=== PATIENT | male | born 1980 | race American Indian/Alaskan Native ===

== ENCOUNTER 2018-08-20 12:40 | Emergency (ER) | payer OTHER ==
[2018-08-20 13:19] VITALS: BP 123/80; PULSE 101; RESP 20; TEMP 98; O2SAT 97
[2018-08-20] MEDS ORDERED: Lidocaine 5% Patch TD STA (14:00)
--- NOTE | 2018-08-20 14:09 | ED PDOC ---
HPI: Back Additional Complaint(s): 38 yo Male with PMH of asthma and chronic low back pain present today sent by PMD due to worsening back pain in the past weeks. Patient stated he injured his back about 9 years ago while lifting and since then the pain have been intermittent with worsen lately. He had tried pain meds and muscle relaxants w/o relief. Patient radiates to his leg bilaterally with occasional numbness and tingling. He denies fevers, chills, nausea, vomiting, CP or abd pain, no urinary sx, incontinence or changes in BM PMD: Dr Dorsey <Earnestine Davis - Last Filed: 08/20/18 14:01> <Allen Reyes - Last Filed: 08/20/18 15:41> Chief Complaint (Nursing): Back Pain Past Medical History Vital Signs: Last Vital Signs Temp 98 F 08/20/18 13:17 Pulse 101 H 08/20/18 13:17 Resp 20 08/20/18 13:17 BP 123/80 08/20/18 13:17 Pulse Ox 97 08/20/18 13:17 - Medical History PMH: Asthma <Earnestine Davis - Last Filed: 08/20/18 14:01> Vital Signs: Last Vital Signs Temp 98 F 08/20/18 13:17 Pulse 101 H 08/20/18 13:17 Resp 20 08/20/18 13:17 BP 123/80 08/20/18 13:17 Pulse Ox 97 08/20/18 14:14 - Surgical History Surgical History: No Surg Hx - Family History Family History: States: Unknown Family Hx <Allen Reyes - Last Filed: 08/20/18 15:41> - Allergies Allergies/Adverse Reactions: Allergies Allergy/AdvReac Type Severity Reaction Status Date / Time iodine Allergy RASH Verified 08/20/18 13:17 Supervising Attending Note - Supervising Attending Note The Documented history was done by the: Physician Angle Bender The documented physical exam was done by the: Physician Angle Bender The documented procedures were done by the: Physician Angle Bender - Attestation: I have personally seen and examined this patient.: Yes I have fully participated in the care of the patient.: Yes I have reviewed all pertinent clinical information: Yes - Notes: Notes:: back pain <Allen Reyes - Last Filed: 08/20/18 15:41> Review of Systems Constitutional: Negative for: Fever, Chills, Weakness Cardiovascular: Negative for: Chest Pain, Palpitations Respiratory: Negative for: Cough, Shortness of Breath Gastrointestinal: Negative for: Nausea, Vomiting, Abdominal Pain Genitourinary Male: Negative for: Dysuria, Incontinence Musculoskeletal: Positive for: Back Pain. Negative for: Neck Pain, Shoulder Pain, Leg Pain Neurological: Positive for: Numbness. Negative for: Weakness <Earnestine Davis - Last Filed: 08/20/18 14:01> Physical Exam - Reviewed Nursing Documentation Reviewed: Yes Vital Signs Reviewed: Yes - Physical Exam Appears: Positive for: In Acute Distress (due to pain) Head Exam: Positive for: NORMAL INSPECTION Neck: Positive for: Normal, Painless ROM, Supple Cardiovascular/Chest: Positive for: Regular Rate, Rhythm. Negative for: Murmur, Tachycardia Respiratory: Positive for: Normal Breath Sounds. Negative for: Rales, Wheezing Gastrointestinal/Abdominal: Positive for: Bowel Sounds, Soft. Negative for: Tenderness, Distended Back: Positive for: Vertebral Tenderness (Lumbar spine), Other (Straight leg rise positive b/l). Negative for: L CVA Tenderness, R CVA Tenderness Neurological/Psych: Positive for: Awake, Alert, Normal Tone, Oriented <Earnestine Davis - Last Filed: 08/20/18 14:01> - Physical Exam Cardiovascular/Chest: Positive for: Regular Rate, Rhythm Respiratory: Positive for: Normal Breath Sounds <Allen Reyes - Last Filed: 08/20/18 15:41> - ECG O2 Sat by Pulse Oximetry: 97 <Earnestine Davis - Last Filed: 08/20/18 14:01> - Progress ED Course And Treament: 1540: Spoke with Dr. Ornelas Wants MRI. Pending MRI read. Dr. Vences to take over care. <Allen Reyes - Last Filed: 08/20/18 15:41> Medical Decision Making Medical Decision Making: DDx includes: lumbar sprain, Herniated disc, Plan: -- lumbar/sacral MRI -- Toradol IM once -- Valium PO once -- Lidoderm patch one -- Reeval <Earnestine Davis - Last Filed: 08/20/18 14:01> Disposition <Earnestine Davis - Last Filed: 08/20/18 14:01> - Patient ED Disposition Is Patient to be Admitted: No Counseled Patient/Family Regarding: Studies Performed, Diagnosis - Disposition Disposition Time: 15:41 Patient Signed Over To: Maged Vences <Allen Reyes - Last Filed: 08/20/18 15:41> - Clinical Impression Clinical Impression: Back pain - Disposition Condition: STABLE Forms: [facility] (Uzbek)
[2018-08-20] MEDS ORDERED: Lidocaine 5% Patch TD ONE (14:10)
--- NOTE | 2018-08-20 16:17 | MRI ---
Date of service: 08/20/2018 PROCEDURE: MR LUMBAR SPINE WITHOUT CONTRAST HISTORY: low back pain radiated to legs b/l COMPARISON: None available. TECHNIQUE: Multiecho multiplanar sequences were performed through the lumbar spine without the use of intravenous contrast. FINDINGS: There is normal alignment of the lumbar vertebral bodies. There is normal lumbar lordosis. There is no acute fracture or spondylolysis. There is a moderate size Harry node at the inferior endplate of L4 vertebral body with surrounding bone marrow edema and a smaller Harry node at the superior endplate of L5 vertebral body with mild surrounding edema. Otherwise, bone marrow signal is within normal limits. The conus medullaris terminates at a normal level and the nerve roots of cauda equina are normal. The paraspinous soft tissues are normal. Imaged portion of the retroperitoneum is within normal limits. There is degeneration of the L3-4 to L5-S1 disc with reduced T2 signal. T12-L1: No disc herniation, spinal canal stenosis or neural foraminal narrowing. L1-2: No disc herniation, spinal canal stenosis or neural foraminal narrowing. L2-3: No disc herniation, spinal canal stenosis or neural foraminal narrowing. L3-4: Mild posterior disc bulge without spinal canal stenosis or neural foraminal narrowing. There is also superimposed small right foraminal and far lateral annular tear and disc protrusions without neural compromise. Mild bilateral facet arthropathy contribute to mild right neural foraminal narrowing. L4-5: Mild diffuse posterior disc bulge without spinal canal stenosis or neural foraminal narrowing. Mild bilateral facet arthropathy contribute to mild neural foraminal narrowing L5-S1: Posterior disc bulge without spinal canal stenosis or neural foraminal narrowing. OTHER FINDINGS: None. IMPRESSION: No acute fracture, spondylolysis or spondylolisthesis. Mild multilevel degenerative disc disease in the lower lumbar spine, worse at L3-4 with a diffuse posterior disc bulge and superimposed right foraminal and far lateral annular tear and disc protrusions without neural compromise. Mild bilateral facet arthropathy contribute to mild right neural foraminal narrowing. Additional comments as described above.
== END 2018-08-20 16:56 | disposition home or self-care (01) ==
LOC: H.ER 12:40
DX: M54.5 Low back pain (principal)